=== PATIENT | male | born 1960 | race Caucasian/White ===

== ENCOUNTER → 2018-09-05 12:16 | Outpatient (POV) | payer MEDICARE, SELFPAY | PROVIDERS: Visit Provider Nurse Practitioner Acute Care | DX: Z00.00 Encounter for general adult medical examination without abnormal findings (principal) ==

== ENCOUNTER → 2018-09-05 13:26 | Outpatient (CLI) | payer MEDICARE, SELFPAY ==
[2018-09-05 14:10] LABS: Basophils % 0.6 % (0.1-2.0); Eosinophils # 0.1 K/mm3 (0.0-0.4); Eosinophils % 2.1 % (0.1-12.0); Hematocrit 37.8 % (42.0-52.0); Hemoglobin 11.7 g/dL (14.1-18.0); Lymphocytes # 1.7 K/mm3 (0.7-4.5); Lymphocytes % 31.2 K/mm3 (10-50); Mean Corpuscular HGB Conc 30.9 g/dL (31.8-35.4); Mean Corpuscular Hemoglobin 24.9 pg (27.0-31.2); Mean Corpuscular Volume 80.8 fl (80-94); Mean Platelet Volume 7.8 fl (7.4-10.4); Monocytes # 0.4 K/mm3 (0.1-1.0); Monocytes % 7.5 % (1.7-9.3); Neutrophils # 3.2 K/mm3 (1.8-7.8); Neutrophils % 58.5 % (37.0-80.0); Platelet Count 190 K/mm3 (142-424); Red Blood Count 4.68 M/mm3 (4.60-6.20); Red Cell Distribution Width 18.9 % (11.5-17.5); White Blood Count 5.5 K/mm3 (4.8-10.8)
[2018-09-05 14:46] LABS: Alanine Aminotransferase 28 U/L (12-78); Albumin Level 3.5 gm/dL (3.4-5.0); Albumin/Globulin Ratio 0.8 (1.1-1.8); Alkaline Phosphatase 121 U/L (46-116); Anion Gap 12.4 mEq/L (5-15); Aspartate Amino Transferase 22 U/L (15-37); Bilirubin,Total 0.8 mg/dL (0.2-1.0); Blood Urea Nitrogen 9 mg/dL (7-18); Calcium 8.7 mg/dL (8.5-10.1); Carbon Dioxide 29 mmol/L (21.0-32.0); Chloride 101 mmol/L (98-107); Creatinine,Serum 1.16 mg/dL (0.70-1.30); Estimated Glomerular Filt Rate 64 ml/min (>60); Ferritin 55 ng/mL (8-388); GFR (African American) 78 ML/MIN (>60); Globulin 4.3 gm/dl (1.3-3.2); Glucose 124 mg/dL (74-106); Potassium 3.4 mmoL/L (3.5-5.1); Sodium 139 mmol/L (136-145); Total Protein,Serum 7.8 gm/dL (6.4-8.2)
[2018-09-06 09:18] LABS: Iron 27 ug/dL (38-169); UIBC 311 ug/dL (111-343)
[2018-09-06 09:31] LABS: Iron Saturation 8 % (15-55)
== END ==
PROVIDERS: PCP Family Medicine; Visit Provider Nurse Practitioner Acute Care
DX: D50.0 Iron deficiency anemia secondary to blood loss (chronic) (principal)
CPT/HCPCS: 36415; 80053; 82728; 83540; 83550; 85025

== ENCOUNTER → 2018-11-17 08:43 | Outpatient (CLI) | payer MEDICARE, SELFPAY ==
--- NOTE | 2018-11-17 08:48 | US_ITS ---
US abdomen limited HISTORY: Right upper quadrant pain.] [employer]icaid for arthritis 20 Arthritis ORDERING PHYSICIAN: Namarta Ross PATIENT AGE: 58 years Comparison: None no prior studies for comparison. TECHNIQUE Sagittal, transverse and decubitus imaging of the gallbladder was performed./CC FINDINGS GALLBLADDER -surgically removed. Liver: No focal lesions.. No biliary ductal dilatation. Question slightly coarse architecture of the liver. Possible early cirrhosis , versus minimal fatty changes.. Portal vein normal caliber and normal direction flow Pancreas: No significant findings Head body and medial tail unremarkable. Fair visualization Right kidney: Unremarkable appearing. No hydronephrosis. Normal size 13 cm in length. IMPRESSION: Liver. No focal lesions.. No ductal dilatation. Perhaps very slightly coarse architecture. \ Common duct normal. Right kidney and pancreas unremarkable. Gallbladder. Surgically removed.
== END ==
PROVIDERS: PCP Family Medicine; Visit Provider Nurse Practitioner Acute Care
DX: K74.60 Unspecified cirrhosis of liver (principal); K30 Functional dyspepsia
CPT/HCPCS: 76705

== ENCOUNTER → 2019-06-19 12:30 | Outpatient (POV) | payer MEDICARE, SELFPAY | PROVIDERS: PCP Family Medicine; Visit Provider Nurse Practitioner Family | DX: Z00.00 Encounter for general adult medical examination without abnormal findings (principal) ==

== ENCOUNTER → 2019-11-01 07:13 | Outpatient (CLI) | payer MEDICARE, SELFPAY ==
--- NOTE | 2019-11-01 07:44 | US_ITS ---
PROCEDURE: US ABDOMEN LIMITED CLINICAL INDICATION: CIRRHOSIS, FATTY LIVER, CONSTIPATION, FUNCTIONAL DYSPEPSIA Right upper quadrant pain COMPARISON: [facility] US abdomen limited from 11/17/2018 FINDINGS: PANCREAS: Unremarkable. No obvious mass or abnormal fluid collection. No ductal dilatation LIVER: Fatty liver. No focal liver lesions evident. There is appropriate direction of blood flow within a non dilated portal vein. Has been a prior cholecystectomy. RIGHT KIDNEY: Unremarkable. Normal size and echogenicity. No hydronephrosis GALLBLADDER: Post cholecystectomy. Common bile duct is normal 3 mm IMPRESSION: Status post cholecystectomy with fatty liver Dictated by: Juni Brunson MD 11/01/2019 19:00 Electronically signed by Juni Brunson MD in [place] 11/01/2019 19:00
[2019-11-01 07:56] LABS: Basophils # 0.1 K/mm3 (0-0.2); Basophils % 0.7 % (0.1-2.0); Eosinophils # 0.1 K/mm3 (0.0-0.4); Eosinophils % 1.2 % (0.1-12.0); Hematocrit 47.1 % (42.0-52.0); Hemoglobin 15.5 g/dL (14.1-18.0); Lymphocytes # 2.8 K/mm3 (0.7-4.5); Mean Corpuscular HGB Conc 32.9 g/dL (31.8-35.4); Mean Corpuscular Hemoglobin 29.4 pg (27.0-31.2); Mean Corpuscular Volume 89.2 fl (80-94); Mean Platelet Volume 8.6 fl (7.4-10.4); Monocytes # 0.7 K/mm3 (0.1-1.0); Neutrophils # 4.7 K/mm3 (1.8-7.8); Neutrophils % 56.1 % (37.0-80.0); Platelet Count 159 K/mm3 (142-424); Red Blood Count 5.28 M/mm3 (4.60-6.20); Red Cell Distribution Width 14.7 % (11.5-17.5); White Blood Count 8.4 K/mm3 (4.8-10.8)
[2019-11-01 08:04] LABS: Ammonia 18 umol/L (19-54)
[2019-11-01 08:05] LABS: INR 1.05 (0.9-1.1); Prothrombin Time 10.9 seconds (9.4-11.8)
[2019-11-01 10:03] LABS: Alanine Aminotransferase 33 U/L (12-78); Albumin Level 3.5 gm/dL (3.4-5.0); Alkaline Phosphatase 106 U/L (46-116); Aspartate Amino Transferase 13 U/L (15-37); Bilirubin,Total 1.3 mg/dL (0.2-1.0); Blood Urea Nitrogen 11 mg/dL (7-18); Calcium 8.4 mg/dL (8.5-10.1); Carbon Dioxide 26 mmol/L (21.0-32.0); Chloride 104 mmol/L (98-107); Creatinine,Serum 1.25 mg/dL (0.70-1.30); Estimated Glomerular Filt Rate 59 ml/min (>60); Ferritin 123 ng/mL (8-388); GFR (African American) 71 ML/MIN (>60); Globulin 3.5 gm/dl (1.3-3.2); Glucose 151 mg/dL (74-106); Sodium 141 mmol/L (136-145)
[2019-11-02 08:39] LABS: Iron 80 ug/dL (38-169); UIBC 235 ug/dL (111-343)
[2019-11-02 13:18] LABS: AFP, Tumor Marker 5.3 ng/mL (0.0-8.3); Iron Saturation 25 % (15-55)
== END ==
PROVIDERS: PCP Family Medicine; Visit Provider Nurse Practitioner Family
DX: K59.00 Constipation, unspecified (principal); K74.60 Unspecified cirrhosis of liver; K30 Functional dyspepsia; K76.0 Fatty (change of) liver, not elsewhere classified
CPT/HCPCS: 36415; 76705; 80053; 82105; 82140; 82728; 83540; 83550; 85025; 85610

== ENCOUNTER → 2019-11-06 09:13 | Outpatient (POV) | payer MEDICARE, SELFPAY | PROVIDERS: Visit Provider Nurse Practitioner Family | DX: Z00.00 Encounter for general adult medical examination without abnormal findings (principal) ==

== ENCOUNTER → 2020-04-26 08:20 | Outpatient (CLI) | payer MEDICARE, SELFPAY ==
--- NOTE | 2020-04-26 08:53 | US_ITS ---
PROCEDURE: US ABDOMEN LIMITED CLINICAL INDICATION: BLOATING,CIRRHOSIS,[id number],FATTY LIVER,NAUSEA,DYSPEPSI COMPARISON: US ABDOMEN LIMITED from 11/01/2019 FINDINGS: PANCREAS: The pancreas is normal in size and shows overall increased echogenicity probably due to fatty infiltration. LIVER: The liver is normal in size and shows diffuse overall and somewhat coarsened appearing echogenicity consistent with fatty infiltration and or possibly early cirrhotic change. The appearance is similar to the previous exam October 2019. the portal vein is normal in caliber with appropriate blood flow. RIGHT KIDNEY: The right kidney measures 12.3 x 6.6 by 4.4 cm and appears sonographically normal with no hydronephrosis or definite calculi seen. GALLBLADDER: Post cholecystectomy, the common bile duct is normal in caliber. IMPRESSION: Little or no change from the previous exam with findings of diffuse fatty liver and possibly early cirrhotic change and probable fatty infiltration of the pancreas as well Dictated by: Dr. Dagoberto Bruno MD 04/26/2020 09:[address] Dagoberto Bruno MD in [place] 04/26/2020 09:59
[2020-04-26 10:23] LABS: Basophils # 0.1 K/mm3 (0-0.2); Basophils % 0.9 % (0.1-2.0); Eosinophils # 0.1 K/mm3 (0.0-0.4); Eosinophils % 2.1 % (0.1-12.0); Hematocrit 44.2 % (42.0-52.0); Hemoglobin 15.4 g/dL (14.1-18.0); Lymphocytes # 2.6 K/mm3 (0.7-4.5); Mean Corpuscular HGB Conc 34.8 g/dL (31.8-35.4); Mean Corpuscular Hemoglobin 30.9 pg (27.0-31.2); Mean Corpuscular Volume 88.7 fl (80-94); Mean Platelet Volume 8.5 fl (7.4-10.4); Monocytes # 0.5 K/mm3 (0.1-1.0); Monocytes % 8.3 % (1.7-9.3); Neutrophils # 3.1 K/mm3 (1.8-7.8); Neutrophils % 47.6 % (37.0-80.0); Platelet Count 145 K/mm3 (142-424); Red Blood Count 4.99 M/mm3 (4.60-6.20); Red Cell Distribution Width 15.1 % (11.5-17.5); White Blood Count 6.4 K/mm3 (4.8-10.8)
[2020-04-26 10:25] LABS: Ammonia < 9 umol/L (9-30)
[2020-04-26 10:35] LABS: INR 1.08 (0.9-1.1)
[2020-04-26 12:29] LABS: Chloride 104 mmol/L (98-107); Potassium 4.2 mmoL/L (3.5-5.1); Sodium 138 mmol/L (136-145)
[2020-04-26 12:31] LABS: Alanine Aminotransferase 31 U/L (12-78); Aspartate Amino Transferase 26 U/L (17-59); Blood Urea Nitrogen 7 mg/dl (9-20); Estimated Glomerular Filt Rate 68 ml/min (>60); GFR (African American) 82 ML/MIN (>60)
[2020-04-26 12:32] LABS: Albumin Level 3.7 g/dl (3.5-5.0); Albumin/Globulin Ratio 1.2 (1.1-1.8); Alkaline Phosphatase 107 U/L (38-126); Anion Gap 11.2 mEq/L (5-15); Bilirubin,Total 1.7 mg/dl (0.2-1.3); Calcium 8.8 mg/dl (8.4-10.2); Carbon Dioxide 27 mmol/L (22.0-30.0); Glucose 119 mg/dl (74-100); Total Protein,Serum 6.7 g/dl (6.3-8.2)
[2020-04-27 09:11] LABS: Iron 79 ug/dL (38-169); Iron Saturation 28 % (15-55); UIBC 204 ug/dL (111-343)
[2020-04-27 13:53] LABS: AFP, Tumor Marker 5.2 ng/mL (0.0-8.3)
== END ==
PROVIDERS: PCP Family Medicine; Visit Provider Nurse Practitioner Family
DX: R14.0 Abdominal distension (gaseous) (principal); R11.0 Nausea; K74.60 Unspecified cirrhosis of liver; K59.00 Constipation, unspecified; K30 Functional dyspepsia; K71.8 Toxic liver disease with other disorders of liver
CPT/HCPCS: 36415; 76705; 80053; 82105; 82140; 82728; 83540; 83550; 85025; 85610

== ENCOUNTER → 2020-07-09 13:12 | Outpatient (CLI) | payer MEDICARE, SELFPAY ==
[2020-07-09 13:43] LABS: Basophils % 0.4 % (0.1-2.0); Eosinophils # 0.1 K/mm3 (0.0-0.4); Eosinophils % 1.1 % (0.1-12.0); Hematocrit 44.8 % (42.0-52.0); Hemoglobin 15.8 g/dL (14.1-18.0); Lymphocytes # 2.6 K/mm3 (0.7-4.5); Lymphocytes % 34.5 % (10-50); Mean Corpuscular HGB Conc 35.2 g/dL (31.8-35.4); Mean Corpuscular Hemoglobin 31.4 pg (27.0-31.2); Mean Corpuscular Volume 89.2 fl (80-94); Mean Platelet Volume 8.2 fl (7.4-10.4); Monocytes # 0.5 K/mm3 (0.1-1.0); Neutrophils # 4.3 K/mm3 (1.8-7.8); Platelet Count 144 K/mm3 (142-424); Red Blood Count 5.02 M/mm3 (4.60-6.20); Red Cell Distribution Width 14.8 % (11.5-17.5); White Blood Count 7.5 K/mm3 (4.8-10.8)
[2020-07-09 13:46] LABS: Ammonia 11 umol/L (9-30)
[2020-07-09 14:14] LABS: Chloride 102 mmol/L (98-107); Potassium 4.6 mmoL/L (3.5-5.1); Sodium 136 mmol/L (136-145)
[2020-07-09 14:17] LABS: Alanine Aminotransferase 36 U/L (12-78); Alkaline Phosphatase 101 U/L (38-126); Anion Gap 12.6 mEq/L (5-15); Aspartate Amino Transferase 34 U/L (17-59); Bilirubin,Total 1.5 mg/dl (0.2-1.3); Blood Urea Nitrogen 10 mg/dl (9-20); Carbon Dioxide 26 mmol/L (22.0-30.0); Estimated Glomerular Filt Rate 62 ml/min (>60); GFR (African American) 74 ML/MIN (>60); Iron 81 ug/dL (49-181)
[2020-07-09 14:18] LABS: Albumin Level 3.7 g/dl (3.5-5.0); Albumin/Globulin Ratio 1.1 (1.1-1.8); Calcium 8.9 mg/dl (8.4-10.2); Globulin 3.4 g/dL (1.3-3.2); Glucose 205 mg/dl (74-100); Total Protein,Serum 7.1 g/dl (6.3-8.2)
[2020-07-09 14:27] LABS: Total Iron Binding Capacity 322 ug/dL (261-462)
[2020-07-09 14:33] LABS: INR 1.08 (0.9-1.1)
[2020-07-09 14:52] LABS: Ferritin 104 ng/ml (17.9-464)
[2020-07-10 13:03] LABS: AFP, Tumor Marker 5.4 ng/mL (0.0-8.3)
== END ==
PROVIDERS: Visit Provider Nurse Practitioner Family
DX: R11.0 Nausea (principal); K76.0 Fatty (change of) liver, not elsewhere classified; K30 Functional dyspepsia; K59.00 Constipation, unspecified; K74.60 Unspecified cirrhosis of liver; R14.0 Abdominal distension (gaseous)
CPT/HCPCS: 36415; 80053; 82105; 82140; 82728; 83540; 83550; 85025; 85610

== ENCOUNTER → 2020-07-10 09:32 | Outpatient (CLI) | payer MEDICARE, SELFPAY ==
--- NOTE | 2020-07-10 09:38 | CT_ITS ---
PROCEDURE: CT ABDOMEN PELVIS WO/W CON CLINICAL INDICATION: CONSTIPATION, CIRRHOSIS,UNSPECIFIED, RUQ PAIN COMPARISON: US US ABDOMEN LIMITED from 04/26/2020 TECHNIQUE: IV Contrast: 75ML OPTIRAY 350 Oral Contrast None Axial images obtained with sagittal and coronal reformats. All CT scans at the facility use one or more dose reduction, viz: automated exposure control, ma/kV adjustment per patient size (including targeted exams where dose is matched to indication, i.e. head), or iterative reconstruction technique. FINDINGS: LOWER THORAX: There are mild atelectatic changes in the lung bases. Coronary artery calcifications are present. ABDOMEN & PELVIS: There has been a prior cholecystectomy. Liver has an unremarkable appearance. There is [place] at 15 cm. The adrenal glands have an unremarkable appearance as does the pancreas. There is a nonobstructing 6 mm stone in the lower pole of the left kidney. There is diverticulosis of the descending and sigmoid colon. There is a small ventral abdominal wall hernia containing fat. This is 8.6 cm below the xiphoid. There has been a prior appendectomy. No evidence of diverticulitis. There are mild degenerative changes in the thoracic and lumbar spine. There are few scattered small retroperitoneal lymph nodes. IMPRESSION: 1. No acute abdominal or pelvic findings. 2. Colonic diverticulosis without diverticulitis. 3. Left nephrolithiasis. 4. Mild splenomegaly Dictated by: Juni Brunson MD 07/10/2020 14:11 Juni Brunson MD in [place] 07/10/2020 14:11
== END ==
PROVIDERS: PCP Family Medicine; Visit Provider Nurse Practitioner Family
DX: R10.11 Right upper quadrant pain (principal); K74.60 Unspecified cirrhosis of liver; K59.00 Constipation, unspecified; D50.0 Iron deficiency anemia secondary to blood loss (chronic); K76.0 Fatty (change of) liver, not elsewhere classified; K30 Functional dyspepsia
CPT/HCPCS: 74178; Q9967

== ENCOUNTER → 2021-01-13 08:26 | Outpatient (CLI) | payer MEDICARE, SELFPAY ==
--- NOTE | 2021-01-13 08:40 | US_ITS ---
PROCEDURE: US ABDOMEN LIMITED CLINICAL INDICATION: RUQ PAIN, CIRRHOSIS, FATTY LIVER, IRON DEFICIENCY ANEMIA COMPARISON: US US ABDOMEN LIMITED from 04/26/2020 FINDINGS: PANCREAS: Unremarkable. No obvious mass or abnormal fluid collection. No ductal dilatation LIVER: No focal liver lesions demonstrated. Coarse echogenicity. No intrahepatic biliary ductal dilatation evident. There is appropriate direction of blood flow within a non dilated portal vein RIGHT KIDNEY: Unremarkable. Normal size and echogenicity. No hydronephrosis GALLBLADDER: Prior cholecystectomy IMPRESSION: Coarse echogenic appearance of the liver nonspecific but could be seen with cirrhosis. Prior cholecystectomy. Overall no significant change from 04/26/2020. Dictated by: Juni Brunson MD 01/13/2021 12:58 Juni Brunson MD in [place] 01/13/2021 12:58
[2021-01-13 09:38] LABS: Basophils % 0.5 % (0.1-2.0); Eosinophils # 0.1 K/mm3 (0.0-0.4); Eosinophils % 1.8 % (0.1-12.0); Hematocrit 46.9 % (42.0-52.0); Hemoglobin 15.9 g/dL (14.1-18.0); Lymphocytes # 2.2 K/mm3 (0.7-4.5); Lymphocytes % 34.6 % (10-50); Mean Corpuscular HGB Conc 33.8 g/dL (31.8-35.4); Mean Corpuscular Hemoglobin 30.3 pg (27.0-31.2); Mean Corpuscular Volume 89.7 fl (80-94); Mean Platelet Volume 8.3 fl (7.4-10.4); Monocytes # 0.6 K/mm3 (0.1-1.0); Neutrophils # 3.5 K/mm3 (1.8-7.8); Neutrophils % 54.1 % (37.0-80.0); Platelet Count 137 K/mm3 (142-424); Red Blood Count 5.23 M/mm3 (4.60-6.20); Red Cell Distribution Width 15.2 % (11.5-17.5); White Blood Count 6.4 K/mm3 (4.8-10.8)
[2021-01-13 09:57] LABS: Ammonia < 9 umol/L (9-30)
[2021-01-13 09:59] LABS: INR 1.04 (0.9-1.1); Prothrombin Time 11.5 seconds (9.4-11.8)
[2021-01-13 10:07] LABS: Chloride 105 mmol/L (98-107)
[2021-01-13 10:08] LABS: Potassium 4.1 mmoL/L (3.5-5.1); Sodium 140 mmol/L (136-145)
[2021-01-13 10:10] LABS: Alanine Aminotransferase 36 U/L (12-78); Alkaline Phosphatase 100 U/L (38-126); Anion Gap 12.1 mEq/L (5-15); Aspartate Amino Transferase 31 U/L (17-59); Bilirubin,Total 2.1 mg/dl (0.2-1.3); Blood Urea Nitrogen 17 mg/dl (9-20); Carbon Dioxide 27 mmol/L (22.0-30.0); Estimated Glomerular Filt Rate 62 ml/min (>60); GFR (African American) 74 ML/MIN (>60); Iron 102 ug/dL (49-181)
[2021-01-13 10:11] LABS: Albumin Level 3.9 g/dl (3.5-5.0); Albumin/Globulin Ratio 1.1 (1.1-1.8); Calcium 9.2 mg/dl (8.4-10.2); Globulin 3.6 g/dL (1.3-3.2); Glucose 147 mg/dl (74-100); Total Protein,Serum 7.5 g/dl (6.3-8.2)
[2021-01-13 10:20] LABS: Total Iron Binding Capacity 313 ug/dL (261-462)
[2021-01-13 10:46] LABS: Ferritin 97.1 ng/ml (17.9-464)
== END ==
PROVIDERS: PCP Family Medicine; Visit Provider Nurse Practitioner Family
DX: R10.11 Right upper quadrant pain (principal); K74.60 Unspecified cirrhosis of liver; K76.0 Fatty (change of) liver, not elsewhere classified; D50.9 Iron deficiency anemia, unspecified
CPT/HCPCS: 36415; 76705; 80053; 82105; 82140; 82728; 83540; 83550; 85025; 85610

== ENCOUNTER → 2021-07-14 09:50 | Outpatient (CLI) | payer MEDICARE, SELFPAY ==
--- NOTE | 2021-07-14 09:53 | US_ITS ---
PROCEDURE: US ABDOMEN LIMITED CLINICAL INDICATION: FATTY LIVER,ANEMIA DUE TO BLOOD LOSS,CIRRHOSIS,CONSTIPATION, COMPARISON: US US ABDOMEN LIMITED from 01/13/2021 FINDINGS: PANCREAS: Unremarkable. No obvious mass or abnormal fluid collection. No ductal dilatation LIVER: Coarse echogenic appearance of the liver as before periods. Appropriate direction of blood flow within the portal vein. No obvious liver lesions evident. Non dilated portal vein. Common bile duct is normal at 4 mm. RIGHT KIDNEY: Unremarkable. Normal size and echogenicity. No hydronephrosis GALLBLADDER: Prior cholecystectomy. IMPRESSION: Overall no change in the coarse echogenic appearance of the liver which may be seen with cirrhosis. Prior cholecystectomy Dictated by: Juni Brunson MD 07/14/2021 14:06 Juni Brunson MD in [place] 07/14/2021 14:06
[2021-07-14 11:42] LABS: Basophils % 0.7 % (0.1-2.0); Eosinophils # 0.1 K/mm3 (0.0-0.4); Eosinophils % 1.5 % (0.1-12.0); Hematocrit 44.7 % (42.0-52.0); Hemoglobin 14.8 g/dL (14.1-18.0); Lymphocytes # 2.1 K/mm3 (0.7-4.5); Lymphocytes % 34.4 % (10-50); Mean Corpuscular HGB Conc 33.1 g/dL (31.8-35.4); Mean Corpuscular Hemoglobin 29.4 pg (27.0-31.2); Mean Corpuscular Volume 88.8 fl (80-94); Mean Platelet Volume 8.8 fl (7.4-10.4); Monocytes # 0.5 K/mm3 (0.1-1.0); Monocytes % 8.4 % (1.7-9.3); Neutrophils # 3.4 K/mm3 (1.8-7.8); Platelet Count 164 K/mm3 (142-424); Red Blood Count 5.03 M/mm3 (4.60-6.20); Red Cell Distribution Width 15.2 % (11.5-17.5); White Blood Count 6.2 K/mm3 (4.8-10.8)
[2021-07-14 11:47] LABS: Ammonia < 9 umol/L (9-30)
[2021-07-14 12:01] LABS: Alanine Aminotransferase 33 U/L (12-78); Albumin Level 3.7 g/dl (3.5-5.0); Albumin/Globulin Ratio 1.1 (1.1-1.8); Alkaline Phosphatase 105 U/L (38-126); Aspartate Amino Transferase 30 U/L (17-59); Bilirubin,Total 1.4 mg/dl (0.2-1.3); Blood Urea Nitrogen 11 mg/dl (9-20); Calcium 8.5 mg/dl (8.4-10.2); Carbon Dioxide 27 mmol/L (22.0-30.0); Chloride 105 mmol/L (98-107); Estimated Glomerular Filt Rate 76 ml/min (>60); GFR (African American) 92 ML/MIN (>60); Globulin 3.3 g/dL (1.3-3.2); Glucose 178 mg/dl (74-100); Sodium 140 mmol/L (136-145)
[2021-07-14 12:20] LABS: Anion Gap 12.4 mEq/L (5-15); Potassium 4.4 mmoL/L (3.5-5.1)
[2021-07-14 12:23] LABS: Iron 81 ug/dL (49-181)
[2021-07-14 12:32] LABS: Total Iron Binding Capacity 364 ug/dL (261-462)
[2021-07-14 13:01] LABS: Ferritin 17.8 ng/ml (17.9-464)
[2021-07-14 15:06] LABS: Prothrombin Time 11.3 seconds (10.1-12.5)
[2021-07-14 15:10] LABS: INR 0.95 (0.9-1.1)
[2021-07-15 11:19] LABS: AFP, Tumor Marker 3.8 ng/mL (0.0-8.3)
== END ==
PROVIDERS: PCP Family Medicine; Visit Provider Nurse Practitioner Family
DX: K76.0 Fatty (change of) liver, not elsewhere classified (principal); D50.0 Iron deficiency anemia secondary to blood loss (chronic); K74.60 Unspecified cirrhosis of liver; K59.00 Constipation, unspecified; K30 Functional dyspepsia; R11.0 Nausea
CPT/HCPCS: 36415; 76705; 80053; 82105; 82140; 82728; 83540; 83550; 85025; 85610

== ENCOUNTER → 2022-01-13 09:09 | Outpatient (CLI) | payer MEDICARE, SELFPAY ==
--- NOTE | 2022-01-13 09:13 | US_ITS ---
FINAL REPORT CLINICAL HISTORY: CONSTIPATION,DYSPEPSIA,FATTY LIVER,NAUSEA,RUQ PAIN-- fu luu FINDINGS: ULTRASOUND RIGHT UPPER QUADRANT Sonographic imaging of the right upper quadrant was obtained. The pancreas is partially obscured. There is coarsening of the echogenicity of the liver consistent with fatty infiltration. The gallbladder is surgically absent. There is no biliary ductal dilatation. The common duct is normal at 3 mm. Limited images of the right kidney are unremarkable. IMPRESSION: Fatty infiltrated liver. Post cholecystectomy. Reviewed, Interpreted and Dictated by Basil Goins MD Transcribed by Rosangela Burton Authenticated by Basil Goins MD on 01/13/2022 12:44:54 PM [facility]
[2022-01-13 10:43] LABS: Ammonia < 9 umol/L (9-30)
[2022-01-13 10:46] LABS: Basophils % 0.6 % (0.1-2.0); Eosinophils # 0.1 K/mm3 (0.0-0.4); Eosinophils % 2.3 % (0.1-12.0); Hematocrit 41.5 % (42.0-52.0); Hemoglobin 13.4 g/dL (14.1-18.0); Lymphocytes # 1.9 K/mm3 (0.7-4.5); Lymphocytes % 33.5 % (10-50); Mean Corpuscular HGB Conc 32.3 g/dL (31.8-35.4); Mean Corpuscular Hemoglobin 27.6 pg (27.0-31.2); Mean Corpuscular Volume 85.6 fl (80-94); Monocytes # 0.6 K/mm3 (0.1-1.0); Monocytes % 10.1 % (1.7-9.3); Neutrophils # 3.1 K/mm3 (1.8-7.8); Neutrophils % 53.4 % (37.0-80.0); Platelet Count 172 K/mm3 (142-424); Red Blood Count 4.85 M/mm3 (4.60-6.20); Red Cell Distribution Width 15.1 % (11.5-17.5); White Blood Count 5.8 K/mm3 (4.8-10.8)
[2022-01-13 10:51] LABS: INR 1.01 (0.9-1.1); Prothrombin Time 11.4 seconds (10.1-12.5)
[2022-01-13 10:55] LABS: Chloride 103 mmol/L (98-107)
[2022-01-13 10:56] LABS: Potassium 4.4 mmoL/L (3.5-5.1); Sodium 134 mmol/L (136-145)
[2022-01-13 10:58] LABS: Alanine Aminotransferase 33 U/L (12-78); Alkaline Phosphatase 107 U/L (38-126); Aspartate Amino Transferase 37 U/L (17-59); Blood Urea Nitrogen 13 mg/dl (9-20); Estimated Glomerular Filt Rate 76 ml/min (>60); GFR (African American) 92 ML/MIN (>60)
[2022-01-13 10:59] LABS: Albumin Level 3.6 g/dl (3.5-5.0); Anion Gap 11.4 mEq/L (5-15); Calcium 7.7 mg/dl (8.4-10.2); Carbon Dioxide 24 mmol/L (22.0-30.0); Globulin 3.5 g/dL (1.3-3.2); Glucose 184 mg/dl (74-100); Iron 75 ug/dL (49-181); Total Protein,Serum 7.1 g/dl (6.3-8.2)
[2022-01-13 11:08] LABS: Total Iron Binding Capacity 368 ug/dL (261-462)
[2022-01-13 11:34] LABS: Ferritin 14.9 ng/ml (17.9-464)
[2022-01-14 08:29] LABS: AFP, Tumor Marker 3.4 ng/mL (0.0-8.3)
== END ==
PROVIDERS: PCP Family Medicine; Visit Provider Nurse Practitioner Family
DX: R10.11 Right upper quadrant pain (principal); R14.0 Abdominal distension (gaseous); R11.0 Nausea; K30 Functional dyspepsia; K74.60 Unspecified cirrhosis of liver; K76.0 Fatty (change of) liver, not elsewhere classified; D50.0 Iron deficiency anemia secondary to blood loss (chronic); K31.819 Angiodysplasia of stomach and duodenum without bleeding
CPT/HCPCS: 36415; 76705; 80053; 82105; 82140; 82728; 83540; 83550; 85025; 85610

== ENCOUNTER → 2023-04-27 07:41 | Outpatient (CLI) | payer MEDICARE, SELFPAY ==
--- NOTE | 2023-04-27 08:02 | US_ITS ---
FINAL REPORT CLINICAL HISTORY: CIRRHOSIS,FATTY LIVER,RUQ PAIN COMPARISON: 01/13/2022 FINDINGS: ULTRASOUND RIGHT UPPER QUADRANT Sonographic imaging of the right upper quadrant was obtained. The pancreas is partially obscured. The liver demonstrates diffuse increased echogenicity compatible with fatty changes. The portal vein is patent by Doppler. There is hypoechoic shadowing in the region of the gallbladder fossa favored to represent bowel gas artifact and or surgical clips. There is no biliary ductal dilatation. Limited images of the right kidney are unremarkable. IMPRESSION: 1. Fatty liver. 2. No evidence of biliary obstruction. Reviewed, Interpreted and Dictated by Heike Mendoza MD Transcribed by Maddie Boo Authenticated and [facility]
[2023-04-27 08:37] LABS: Ammonia < 9 umol/L (9-30)
[2023-04-27 08:39] LABS: INR 1.02 (0.9-1.1)
[2023-04-27 08:40] LABS: Chloride 101 mmol/L (98-107); Potassium 3.9 mmoL/L (3.5-5.1); Sodium 137 mmol/L (136-145)
[2023-04-27 08:43] LABS: Alanine Aminotransferase 68 U/L (12-78); Albumin Level 3.4 g/dl (3.5-5.0); Albumin/Globulin Ratio 0.9 (1.1-1.8); Alkaline Phosphatase 108 U/L (38-126); Anion Gap 13.9 mEq/L (5-15); Aspartate Amino Transferase 49 U/L (17-59); Blood Urea Nitrogen 13 mg/dl (9-20); Calcium 8.4 mg/dl (8.4-10.2); Carbon Dioxide 26 mmol/L (22.0-30.0); Estimated Glomerular Filt Rate 67 ml/min (>60); GFR (African American) 82 ML/MIN (>60); Globulin 3.9 g/dL (1.3-3.2); Glucose 177 mg/dl (74-100); Iron 65 ug/dL (49-181); Total Protein,Serum 7.3 g/dl (6.3-8.2)
[2023-04-27 08:46] LABS: Basophils % 0.4 % (0.1-2.0); Eosinophils # 0.2 K/mm3 (0.0-0.4); Eosinophils % 3.1 % (0.1-12.0); Hematocrit 40.5 % (42.0-52.0); Hemoglobin 13.1 g/dL (14.1-18.0); Lymphocytes # 2.1 K/mm3 (0.7-4.5); Lymphocytes % 41.8 % (10-50); Mean Corpuscular HGB Conc 32.2 g/dL (31.8-35.4); Mean Corpuscular Hemoglobin 27.2 pg (27.0-31.2); Mean Corpuscular Volume 84.5 fl (80-94); Mean Platelet Volume 7.8 fl (7.4-10.4); Monocytes # 0.6 K/mm3 (0.1-1.0); Monocytes % 11.8 % (1.7-9.3); Neutrophils # 2.1 K/mm3 (1.8-7.8); Neutrophils % 42.9 % (37.0-80.0); Platelet Count 132 K/mm3 (142-424); Red Cell Distribution Width 16.6 % (11.5-17.5)
[2023-04-27 08:53] LABS: Total Iron Binding Capacity 344 ug/dL (261-462)
[2023-04-27 09:18] LABS: Ferritin 18.8 ng/ml (17.9-464)
[2023-04-28 09:31] LABS: AFP, Tumor Marker 2.7 ng/mL (0.0-8.4)
== END ==
LOC: RAD 07:42
PROVIDERS: PCP Family Medicine; Visit Provider Nurse Practitioner Family
DX: R10.11 Right upper quadrant pain (principal); K74.60 Unspecified cirrhosis of liver; K76.0 Fatty (change of) liver, not elsewhere classified; K31.819 Angiodysplasia of stomach and duodenum without bleeding; K30 Functional dyspepsia; D50.0 Iron deficiency anemia secondary to blood loss (chronic)
CPT/HCPCS: 36415; 76705; 80053; 82105; 82140; 82728; 83540; 83550; 85025; 85610

== ENCOUNTER → 2023-05-12 09:28 | Outpatient (CLI) | payer MEDICARE, SELFPAY ==
--- NOTE | 2023-05-12 09:32 | CT_ITS ---
FINAL REPORT TECHNIQUE: After the administration of oral and intravenous contrast, axial images were obtained through the abdomen and pelvis by computed tomography. The study was performed with techniques to keep radiation dose as low as reasonably achievable, (ALARA). Individual dose reduction techniques using automated exposure control or adjustment of mA and/or kV according to the patient's size were employed. CLINICAL HISTORY: CIRROHSIS dx 5 yrs ago, RUQ pain x wks FINDINGS: Abdomen: There is mild scarring in the lung bases. There is mild fatty infiltration of the liver. The gallbladder has been surgically resected. The spleen, pancreas, and adrenals appear unremarkable. There is an 8 mm calcified stone present in the left renal pelvis. The aorta is normal in caliber. There is no free fluid or adenopathy. Pelvis: The appendix is not identified. There is extensive descending colon and sigmoid colon diverticulosis without evidence of acute inflammatory change. The urinary bladder is unremarkable. There is no free fluid or adenopathy. IMPRESSION: 8 mm stone, nonobstructing, left renal pelvis. Extensive diverticulosis in the descending and sigmoid portions of the colon. Fatty infiltration of the liver and prior cholecystectomy. Reviewed, Interpreted and Dictated by Basil Goins MD Transcribed by Flori Wilhelm Authenticated and . [facility]
== END ==
LOC: RAD 09:28
PROVIDERS: PCP Family Medicine; Visit Provider Nurse Practitioner Family
DX: R10.9 Unspecified abdominal pain (principal); R14.0 Abdominal distension (gaseous); K30 Functional dyspepsia; K76.0 Fatty (change of) liver, not elsewhere classified; K74.60 Unspecified cirrhosis of liver; D50.0 Iron deficiency anemia secondary to blood loss (chronic); K31.819 Angiodysplasia of stomach and duodenum without bleeding
CPT/HCPCS: 74177; Q9967

== ENCOUNTER → 2023-10-21 07:57 | Outpatient (CLI) | payer MEDICARE, SELFPAY ==
--- NOTE | 2023-10-21 08:00 | US_ITS ---
FINAL REPORT CLINICAL HISTORY: RUQ PAIN X LONGER THAN 1 YEAR COMPARISON: 04/27/2023 FINDINGS: Sonographic images of the right upper quadrant were obtained. The pancreas is partially obscured. There is fatty infiltration of the liver. The gallbladder has been surgically resected. There is no evidence of biliary ductal dilatation.The common duct measures 5 mm. Limited images of the right kidney are unremarkable. IMPRESSION: Prior cholecystectomy. Fatty infiltration of the liver. Reviewed, Interpreted and Dictated by Basil Goins MD Transcribed by Flori Wilhelm Authenticated and [facility]
[2023-10-21 09:38] LABS: Ammonia 16 umol/L (9-30)
[2023-10-21 09:39] LABS: INR 1.07 (0.9-1.1); Prothrombin Time 11.5 seconds (10.1-12.5)
[2023-10-21 10:00] LABS: Basophils % 0.5 % (0.1-2.0); Eosinophils # 0.1 K/mm3 (0.0-0.4); Eosinophils % 1.7 % (0.1-12.0); Hemoglobin 12.1 g/dL (14.1-18.0); Lymphocytes % 39.6 % (10-50); Mean Corpuscular HGB Conc 32.8 g/dL (31.8-35.4); Mean Corpuscular Hemoglobin 27.7 pg (27.0-31.2); Mean Corpuscular Volume 84.3 fl (80-94); Mean Platelet Volume 8.9 fl (7.4-10.4); Monocytes # 0.5 K/mm3 (0.1-1.0); Monocytes % 9.4 % (1.7-9.3); Neutrophils # 2.4 K/mm3 (1.8-7.8); Neutrophils % 48.9 % (37.0-80.0); Platelet Count 140 K/mm3 (142-424); Red Blood Count 4.39 M/mm3 (4.60-6.20); Red Cell Distribution Width 16.5 % (11.5-17.5)
[2023-10-21 10:21] LABS: Chloride 104 mmol/L (98-107); Sodium 138 mmol/L (136-145)
[2023-10-21 10:22] LABS: Potassium 4.2 mmoL/L (3.5-5.1)
[2023-10-21 10:24] LABS: Alanine Aminotransferase 66 U/L (12-78); Alkaline Phosphatase 134 U/L (38-126); Anion Gap 10.2 mEq/L (5-15); Aspartate Amino Transferase 56 U/L (17-59); Bilirubin,Total 0.8 mg/dl (0.2-1.3); Blood Urea Nitrogen 13 mg/dl (9-20); Carbon Dioxide 28 mmol/L (22.0-30.0); Estimated Glomerular Filt Rate 67 ml/min (>60); GFR (African American) 82 ML/MIN (>60); Glucose 151 mg/dl (74-100)
[2023-10-21 10:25] LABS: Albumin Level 3.4 g/dl (3.5-5.0); Albumin/Globulin Ratio 0.9 (1.1-1.8); Calcium 7.9 mg/dl (8.4-10.2); Total Protein,Serum 7.4 g/dl (6.3-8.2)
[2023-10-21 10:34] LABS: Total Iron Binding Capacity 366 ug/dL (261-462)
[2023-10-21 11:00] LABS: Ferritin 14.3 ng/ml (17.9-464)
[2023-10-21 12:24] LABS: Iron 59 ug/dL (49-181)
[2023-10-22 09:13] LABS: AFP, Tumor Marker 3.4 ng/mL (0.0-8.4)
== END ==
LOC: RAD 07:58
PROVIDERS: PCP Family Medicine; Visit Provider Nurse Practitioner Family
DX: R10.11 Right upper quadrant pain; K74.60 Unspecified cirrhosis of liver
CPT/HCPCS: 36415; 76705; 80053; 82105; 82140; 82728; 83540; 83550; 85025; 85610